=== PATIENT | male | born 1970 | race Caucasian/White ===

== ENCOUNTER 2021-06-03 10:17 | Day surgery (SDC) | payer OTHER ==
[~2021-06-03] VITALS: Ht 185.4 cm; Wt 93.3 kg
[~2021-06-03 10:17] MED LIST: CYCL10 PO; HYDACE5 PO; LISI20 PO; METPRE4DP PO; Norco 5-325 Ta1 EACH PO; Norco 7.5-3251 EACH PO; PANT40 PO; PRED20 PO; Voltaren100 GM TOP
--- NOTE | 2021-06-03 11:06 | NUR ---
PT ADMITTED TO [facility]. AGREES WITH PLANNED PROCEDURE. LUNS WITH WHEEZES R BASE. DR. MARTINEZ INFORMED. ORDER FOR BREATHING TREATMENT GIVEN.
--- NOTE | 2021-06-03 11:16 | NUR ---
REPORT GIVEN TO MEGAN LEPE RN.
--- NOTE | 2021-06-03 12:49 | NUR ---
06/03/21 1249 Marj Duke History, Chart, Medications and Allergies reviewed before start of procedure. Patient confirms NPO status and agrees with scheduled surgery. 3-LEAD EKG REVIEWED WITH PHYSICIAN PRIOR TO START OF PROCEDURE. MONITOR INTACT WITH CONTINUOUS PULSE OXIMETRY AND INTERMITTENT BP. PATIENT DETERMINED TO BE ASA APPROPRIATE FOR PROPOFOL SEDATION PRIOR TO START OF PROCEDURE BY
--- NOTE | 2021-06-03 14:31 | NUR ---
Discharge instructions reviewed with patient. Patient verbalizes understanding. Copy given to patient to take home. Patient States Post-Procedure ride home has been arranged. Discharged via wheelchair to private car for ride home.
== END 2021-06-03 23:13 | disposition home or self-care (01) ==
LOC: ORSCMMR 10:17 → ORD 11:45 → ORSCMMR 11:45
PROVIDERS: Internal Medicine Gastroenterology
PROC: 0DBK8ZX Excision of Ascending Colon, Via Natural or Artificial Opening Endoscopic, Diagnostic (ICD-10-PCS; principal; 2021-06-03 11:45)
PROC: 0DBL8ZX Excision of Transverse Colon, Via Natural or Artificial Opening Endoscopic, Diagnostic (ICD-10-PCS; principal; 2021-06-03 11:45)
PROC: 0DBN8ZX Excision of Sigmoid Colon, Via Natural or Artificial Opening Endoscopic, Diagnostic (ICD-10-PCS; principal; 2021-06-03 11:45)
DX: Z12.11 Encounter for screening for malignant neoplasm of colon (principal); D12.5 Benign neoplasm of sigmoid colon; D12.3 Benign neoplasm of transverse colon; D12.2 Benign neoplasm of ascending colon; K63.5 Polyp of colon; K57.30 Diverticulosis of large intestine without perforation or abscess without bleeding; K64.4 Residual hemorrhoidal skin tags; F17.210 Nicotine dependence, cigarettes, uncomplicated
CPT/HCPCS: 88305; J2250; J2704; J7120

== ENCOUNTER 2024-12-03 11:10 | Day surgery (SDC) | payer OTHER ==
[~2024-12-03] VITALS: Ht 185.4 cm; Wt 94.8 kg
[~2024-12-03 11:10] MED LIST changes: +Glycopyrrolate 0.2 MG/ML 1MLVIAL ONE; +Ondansetron HCl 2 MG / ML 2ML Vial ONE; +ePHEDrine Sulfate 50 MG/ML 1ML Injection ONE
[2024-12-03] MEDS ORDERED: LISI20 (11:54)
[2024-12-03 14:29] VITALS: BP 99/64
== END 2024-12-03 14:20 | disposition home or self-care (01) ==
LOC: ORSCSDS 11:10
DX: Z12.11 Encounter for screening for malignant neoplasm of colon (principal); Z86.0101 Personal history of adenomatous and serrated colon polyps; Z86.0102 Personal history of hyperplastic colon polyps; D12.3 Benign neoplasm of transverse colon; K62.1 Rectal polyp; K64.4 Residual hemorrhoidal skin tags; K57.30 Diverticulosis of large intestine without perforation or abscess without bleeding; F17.210 Nicotine dependence, cigarettes, uncomplicated; Z79.899 Other long term (current) drug therapy
CPT/HCPCS: 88305; J0461; J2003; J2405; J2704; J7120